=== PATIENT | female | born 1945 | race Caucasian/White ===

== ENCOUNTER 2020-09-12 10:16 | Outpatient (CLI) | payer MEDICARE, OTHER ==
[2020-09-12 18:21] LABS: SARS-CoV-2 PCR by NAA Not Detected (NotDetected)
== END 2020-09-12 10:17 | disposition home or self-care (01) ==
LOC: CSHLAB 10:16
PROVIDERS: ATTEND Internal Medicine Gastroenterology
DX: Z20.822 Contact with and (suspected) exposure to COVID-19 (principal); R14.0 Abdominal distension (gaseous); R68.81 Early satiety; R11.0 Nausea
CPT/HCPCS: 87635; U0003; U0005

== ENCOUNTER 2020-09-17 09:02 | Outpatient (CLI) | payer MEDICARE, OTHER | END 2020-09-17 09:03 | disposition home or self-care (01) | LOC: CSHNM 09:02 | PROVIDERS: ATTEND Internal Medicine Gastroenterology | DX: R11.0 Nausea (principal); R14.0 Abdominal distension (gaseous); R68.81 Early satiety | CPT/HCPCS: 78264; A9541 ==

== ENCOUNTER 2023-07-23 11:25 | Outpatient (CLI) | payer MEDICARE, OTHER | END 2023-07-23 11:26 | disposition home or self-care (01) | LOC: CSHMAMMO 11:25 | PROVIDERS: ATTEND Internal Medicine | DX: Z12.31 Encounter for screening mammogram for malignant neoplasm of breast (principal) | CPT/HCPCS: 77063; 77067 ==

== ENCOUNTER 2025-04-30 13:44 | Emergency (ER) | payer MEDICARE, OTHER ==
[~2025-04-30 13:44] MED LIST: Iopamidol 300 61% 100 ML VIAL FS ONE
[2025-04-30 14:16] LABS: Glucose, Urine (Dipstick) Normal (Negative); Leukocyte Negative (Negative); Protein, Urine (Dipstick) 100 mg/dl (Neg-Trace); Specific Gravity, Urine 1.020 (1.005-1.030)
[2025-04-30 14:16] LABS: Actual Bicarbonate (HCO3v) 26.5 mEq/L (22-28); Analyzer IN Cardio CS ER; Base Excess 1.7 mEq/L (-2 - +2); Calcium, Ionized (venous) 1.15 mmol/L (1.16-1.32); Chloride (VBG) 95 mmol/L (98-106); Hematocrit-VBG 38 % (36.0-47.0); Hemoglobin (Hb) 12.9 g/dL (11.7-16.1); Potassium (VBG) 3.89 mmol/L (3.70-5.30); Puncture Site Other Site; RapidComm Collect By LAB; Sodium 137 mmol/L (133-146)
[2025-04-30 14:24] LABS: ALT (SGPT) Less than 4 U/L (Less than 34); AST (SGOT) 37 U/L (11-34); Albumin 1.6 g/dL (3.1-4.5); Alkaline Phosphatase 150 U/L (40-110); Anion Gap 19 mmol/L (10-20); BUN (Urea Nitrogen) 20 mg/dL (9.8-20.1); Bilirubin, Total 0.9 mg/dL (0.3-1.2); Calc. Creatinine Clearance 0 mL/min (70-130); Calcium 10.3 mg/dL (7.8-10.44); Carbon Dioxide 24 mmol/L (23-31); Chloride 95 mmol/L (98-107); Globulin 6.0 g/dL (2.4-3.5); Glucose 212 mg/dL (83-110); Potassium 3.9 mmol/L (3.5-5.1); Sodium 134 mmol/L (136-145)
[2025-04-30 14:28] LABS: Bacteria/HPF 1+ HPF (None Seen); CAUTI Indications for Culture Pelvic or flank pain; RBC/HPF 0-3 HPF (0-3); WBC/HPF 0-3 HPF (0-3)
[2025-04-30 14:29] LABS: Hematocrit 35.3 % (34.9-44.5); Hemoglobin 11.2 g/dL (12.0-15.5); Mean Corpuscular Hemoglobin 22.4 pg (27.0-33.0); Mean Corpuscular Volume 70.6 fL (81.6-98.3); Platelet Count 1092 10x3/uL (150-450); Red Blood Cell (RBC) Count 5.00 10x6/uL (3.90-5.03); Reflex for Review?? YES; White Blood Cell (WBC) Count 36.94 10x3/uL (3.5-10.5)
[2025-04-30 14:29] LABS: Mucous/LPF 1+ LPF (<2+); Urine Culture Reflex No No
[2025-04-30 14:55] LABS: Anisocytosis SLIGHT = 6-15 cells (100X) (0-5/hpf); MDiff Complete? YES; Microcytosis SLIGHT = 6-15 cells (100X) (0-5/hpf); Platelet Adequacy Comment Appears Increased
[2025-04-30] MEDS ORDERED: cefTRIAXone (ROCEPHIN) 2 GM VIAL ONE (15:11)
[2025-04-30] MEDS ORDERED: Ketorolac Tromethamine 30 MG (1 mL) VIAL ONE (15:27)
== END 2025-04-30 20:54 | disposition short-term general hospital (02) ==
LOC: CSHERS 13:44
DX: J69.0 Pneumonitis due to inhalation of food and vomit (principal); J43.9 Emphysema, unspecified; D72.829 Elevated white blood cell count, unspecified; I25.10 Atherosclerotic heart disease of native coronary artery without angina pectoris; E11.9 Type 2 diabetes mellitus without complications; E78.00 Pure hypercholesterolemia, unspecified; F17.210 Nicotine dependence, cigarettes, uncomplicated; Z79.82 Long term (current) use of aspirin; Z79.84 Long term (current) use of oral hypoglycemic drugs; Z79.899 Other long term (current) drug therapy
CPT/HCPCS: 36415; 51701; 71045; 71260; 80053; 81001; 82805; 83605; 85025; 85060; 87040; 87086; 87428; 93005; 94760; 96361; 96374; 96375; J0696; J1885; J2272; Q9967